=== PATIENT | male | born 1955 | race Hispanic/Latino ===

== ENCOUNTER 2019-03-08 07:30 | Observation (INO) | payer OTHER ==
[2019-03-07 13:07] VITALS: BP 114/76
[2019-03-07 14:12] LABS: POTASSIUM 3.9 mmol/L (3.5-5.1)
[2019-03-08] VITALS (24 sets, daily range): BP systolic 118–158; BP diastolic 47–93
[~2019-03-08] VITALS: Ht 177.8 cm; Wt 121.5 kg
[2019-03-08] MEDS: CLINDAMYCIN 900 MG/D5% WATER 50 ML IV SCH ×2 (06:00→13:00)
[~2019-03-08 07:30] MED LIST: ASPI-555 PO; CEFAZOLIN 3GM /D5W 100ML 100 ML IV SCH; CETI10TA57 PO; EMPA25TA PO; ENAL20TA PO; GABA-531 PO; HYDR25TA PO; IBUP-2077 PO; METF-445 PO; NITR0.4T50 SL; PHARMACY COMMUNICATION MISC SCH; PRAV80TA21 PO; SENN8.6T52 PO; SUMA100T16 PO; TOPI50TA24 PO
[2019-03-08] MEDS ORDERED: SODIUM CHLORIDE 0.9% 1000ML 1,000 ML IV ONE (11:27)
[2019-03-08] MEDS ORDERED: ROPIVACAINE 0.5% 5MG/ML 30ML IJ ONE ×2 (12:33→12:37)
[2019-03-08] MEDS ORDERED: LIDOCAINE PF 2% 5ML ABBOJECT ONE ×2 (12:33→12:42)
[2019-03-08] MEDS ORDERED: PROPOFOL 10 MG/ML 20ML VIAL IV ONE (12:33)
[2019-03-08] MEDS ORDERED: MIDAZOLAM HCL 1 MG/ML 2ML VIAL ONE (12:33)
[2019-03-08] MEDS ORDERED: FENTANYL CITRATE PF 50 MCG/1 ML 2ML VIAL ONE (12:34)
[2019-03-08] MEDS ORDERED: ROCURONIUM 10MG/1ML SYR 10 MG/ML ML ONE (12:34)
[2019-03-08] MEDS ORDERED: PHENYLEPHRINE HCL 10 MG/ML 1ML VIAL IV ONE (14:00)
[2019-03-08] MEDS ORDERED: GLYCOPYRROLATE 1 MG/5 ML SYRINGE ONE (14:08)
[2019-03-08] MEDS ORDERED: NEOSTIGMINE 5MG/5ML SYR IV ONE (14:08)
[2019-03-08] MEDS ORDERED: ONDANSETRON HCL 4 MG/2 ML VIAL ONE (14:31)
[2019-03-08 14:58] LABS: HEMATOCRIT 41.3 % (42-54)
[2019-03-08] MEDS ORDERED: MAGNESIUM HYDROXIDE 30 ML/UDCUP PO PRN (17:45)
[2019-03-08] MEDS ORDERED: BISACODYL 10 MG SUPP.RECT RC PRN (17:45)
[2019-03-08] MEDS ORDERED: DICL100G31 TP (17:51)
[2019-03-08] MEDS ORDERED: FLUT16H NS (17:51)
[2019-03-08] MEDS ORDERED: SUMATRIPTAN SUCCINATE 25 MG TABLET PO PRN (18:00)
[2019-03-08] MEDS ORDERED: ACETAMINOPHEN-CODEINE 300/30MG TAB PO PRN (18:00)
[2019-03-08] MEDS ORDERED: CETIRIZINE HCL 5 MG TABLET PO PRN (18:00)
[2019-03-08] MEDS ORDERED: HYDROCODONE/ACETAMINOPHEN 5/325 MG TAB PO PRN (18:00)
[2019-03-08] MEDS ORDERED: IBUPROFEN 800 MG TAB PO PRN (18:00)
[2019-03-08 18:15] LABS: HEMATOCRIT 40.6 % (42-54)
[2019-03-08] MEDS: GABAPENTIN 300 MG CAPSULE PO SCH (19:48)
[2019-03-08] MEDS: METFORMIN HCL 850 MG TABLET PO SCH (19:48)
[2019-03-08] MEDS ORDERED: MORPHINE SULFATE 2 MG/ML 1ML SYG IM PRN (20:00)
[2019-03-08] MEDS ORDERED: ONDANSETRON HCL 4 MG/2 ML VIAL IVP PRN (20:30)
[2019-03-08] MEDS ORDERED: FAMOTIDINE/PF 20 MG/2 ML VIAL IV SCH (20:30)
[2019-03-08] MEDS ORDERED: HYDRALAZINE HCL 20 MG/ML VIAL IM PRN (20:30)
[2019-03-08] MEDS ORDERED: DOCUSATE SODIUM 100 MG CAP PO SCH (20:30)
[2019-03-08] MEDS ORDERED: SENNOSIDES 8.6 MG TABLET PO SCH (21:00)
[2019-03-08] MEDS ORDERED: ATORVASTATIN CALCIUM 10 MG TABLET PO SCH (21:00)
--- NOTE | 2019-03-08 21:20 | NUR ---
NOTE PATIENT REPORTING HEADACHE AND BACK DISCOMFORT. HELPED HIM UP TO SIT ON SIDE OF BED AND HE SAYS HE FELT BETTER. GOT A RECLINER CHAIR AND HELPED HIM TO SIT THERE. HE SAYS HE FEELS MORE COMFORTABLE AND HE WANT TO STAY SITTING UP FOR A WHILE. GOT HIS MEDICATIONS AND MORPHINE FOR PAIN. SPOUSE AT BEDSIDE.
[2019-03-08] MEDS: TOPIRAMATE 100 MG TAB PO SCH (21:35)
[2019-03-08] MEDS: MORPHINE SULFATE 4 MG/1ML SYG IV PRN (21:45)
[2019-03-09] MEDS: GABAPENTIN 300 MG CAPSULE PO SCH ×3 (00:01→13:10)
[2019-03-09] MEDS: CLINDAMYCIN 900 MG/D5% WATER 50 ML IV SCH ×3 (00:02→13:10)
[2019-03-09 00:34] LABS: HEMATOCRIT 40.6 % (42-54)
[2019-03-09] MEDS: MORPHINE SULFATE 4 MG/1ML SYG IV PRN ×2 (01:50→05:44)
[2019-03-09 03:20] VITALS: BP 139/98
[2019-03-09 04:11] LABS: BASOPHILS % (AUTO) 0.3 % (0.0-5.0); EOSINOPHILS % (AUTO) 1.1 % (0.0-8.0); HEMATOCRIT 40.8 % (42-54); LYMPHOCYTES % (AUTO) 21.6 % (21.0-51.0); MEAN CORPUSCULAR HGB CONC 33.6 g/dL (32.0-36.0); MEAN CORPUSCULAR VOLUME 89.2 fL (79-99); MONOCYTES % (AUTO) 7.8 % (3.0-13.0); NEUTROPHILS % (AUTO) 69.2 % (40.0-77.0); PLATELET COUNT (AUTO) 184 K/uL (130-400); RED BLOOD CELL COUNT(AUTO) 4.57 MIL/uL (4.50-6.20); RED CELL DISTRIBUTION WIDTH 14.5 % (11.0-15.5); WHITE BLOOD COUNT (AUTO) 9.9 K/uL (4.8-10.8)
[2019-03-09 04:19] LABS: CREATININE 0.9 mg/dL (0.5-1.5); POTASSIUM 3.7 mmol/L (3.5-5.1)
--- NOTE | 2019-03-09 06:00 | NUR ---
NOTE PATIENT CHOSE TO SLEEP ON RECLINER. KEPT HIM COMFORTABLE AND MEDICATED HIM WITH MORPHINE NEEDED FOR HEADACHE, LEFT SHOULDER AND BACK PAIN.
--- NOTE | 2019-03-09 07:55 | NUR ---
NOTE AAOX3. DNEIES PAIN OR DISCOMFORT AT THIS TIME. S/P LEFT ROTATOR CUFF SURGERY BY DR SALAS YESTERDAY. DRESSING TO LEFT SHOULDER D/I. HE IS WEARING ABDUCTOR PILLOW AND HE IS SUPPOSED TO USE IT AT ALL TIMES. NO N/V NO DISTRESS OR SOB. BBS CLEAR. NO NUMBNESS OR TINGLING TO LEFT HAND/FINGERS AND GOOD CAPILLARY REFILL LEFT FINGER TIPS AND STRONG PALPABLE LEFT ULNAR AND RADIAL PULSES. CAN WIGGLE ALL FINGERS BOTH HANDS. AT HIS SIDE.
[2019-03-09 08:00] VITALS: BP 145/89
[2019-03-09] MEDS: TOPIRAMATE 100 MG TAB PO SCH ×2 (08:44→13:09)
[2019-03-09] MEDS: METFORMIN HCL 850 MG TABLET PO SCH ×2 (08:45→13:09)
[2019-03-09] MEDS ORDERED: **HM**Empagliflozin (Jardiance) 12.5 MG PO SCH (09:00)
[2019-03-09] MEDS ORDERED: PANTOPRAZOLE SODIUM 40 MG TABLET.DR PO SCH (09:00)
[2019-03-09] MEDS ORDERED: ENALAPRIL MALEATE 10 MG TABLET PO SCH (09:00)
[2019-03-09] MEDS ORDERED: HYDROCHLOROTHIAZIDE 25 MG TABLET PO SCH (09:00)
[2019-03-09] MEDS ORDERED: ASPIRIN 81 MG EC TAB PO SCH (09:00)
[2019-03-09 11:00] VITALS: BP 144/97
--- NOTE | 2019-03-09 11:03 | NUR ---
NOTE DR SALAS CAME AND MADE ROUNDS AND HE WILL DISCHARGE PATIENT TO FOLLOW UP WITH HIM TUESDAY AT HIS OFFICE. PATIENT IS STABLE, NO DISTRESS OR SOB. DRESSING TO LEFT SHOULDER WILL BE CHANGED PRIOR TO DC.
--- NOTE | 2019-03-09 17:00 | NUR ---
DISCHARGE INSTRUCTIONS GIVEN AT THIS TIME. VERBALIZED UNDERSTANDING. REFER TO DC SUMMARY FOR DETAILS. HE ALSO RECEIVED AND COPY OF DR SALAS'S DC ORDERS PER HIS ORDERS. DRESSING TO LEFT SHOULDER CHANGED PER DR MANSFIELD ORDERS. CLEAN INCISION WITH IODOFORM GAUZE ON IT AND PAINTED WITH BETADINE WELL AND COVERED WITH 4X4 GAUZES AND SECURED WITH TAPE. ABDUCTOR PILLOW ADJUSTED TO PROPER POSITION.
--- NOTE | 2019-03-09 18:13 | NUR ---
INITIAL PT AND SPOUES MET W [facility]IN[facility], DISCUSSED THE DC GAURAV- PT PREVIOSULY INDP, NO DME, DRIVES, HOME SAFE- S/P SHOULD SURGERY- WILL FOLOW UP W DR. SALAS IN HIS OFFIC [place] TUESDAY FOR WOUND CARE AND THERAPY, NO OTHER DC NEEDS, Addendum: 03/09/19 at 1815 by YAYA ROUSE RN CM Amended: Links added.
== END 2019-03-09 17:00 | disposition home or self-care (01) ==
LOC: EDSTATUS 07:30 → DAHIP 10:37 → 4BH 16:15
DX: E78.5 Hyperlipidemia, unspecified (principal); G43.909 Migraine, unspecified, not intractable, without status migrainosus; E11.9 Type 2 diabetes mellitus without complications; M75.102 Unspecified rotator cuff tear or rupture of left shoulder, not specified as traumatic; M75.42 Impingement syndrome of left shoulder; E78.00 Pure hypercholesterolemia, unspecified; M19.012 Primary osteoarthritis, left shoulder; E66.9 Obesity, unspecified; H91.90 Unspecified hearing loss, unspecified ear; I25.10 Atherosclerotic heart disease of native coronary artery without angina pectoris; I11.0 Hypertensive heart disease with heart failure; I50.9 Heart failure, unspecified; Z68.38 Body mass index [BMI] 38.0-38.9, adult; Z88.1 Allergy status to other antibiotic agents; Z79.899 Other long term (current) drug therapy
CPT/HCPCS: 23130; 23412; 36415 ×3; 80048 ×2; 82948 ×2; 85014 ×3; 85018 ×3; 85025; 86850; 86900; 86901; 86922; 88304 ×2; 88311; 94760; 96365; 96366; 96372; 96375; 96376; 97039; 97116; 97161; A4215; A4221; A4222; A4223; A4510; A4600; A4606; A4663; A4930; A6223; A6260; C1713; G0378 ×29; G8978; G8979; G8980; G8981; G8982; G8983; J2001 ×2; J2250; J2270 ×3; J2370; J2405; J2704; J2710; J2795 ×2; J3010; J3490 ×6; J7030 ×2; J0690

== ENCOUNTER → 2019-08-17 | Outpatient (CLI) | payer OTHER ==
[~2019-08-17] MED LIST changes: -CEFAZOLIN 3GM /D5W 100ML 100 ML IV SCH; +DICL100G31 TP; +FLUT16H NS; -PHARMACY COMMUNICATION MISC SCH
== END | disposition home or self-care (01) ==
LOC: SHCH 10:54
PROVIDERS: ATTEND Internal Medicine Cardiovascular Disease
DX: R06.00 Dyspnea, unspecified (principal)
CPT/HCPCS: 93306; 93356

== ENCOUNTER → 2019-08-21 | Outpatient (CLI) | payer OTHER ==
[~2019-08-21] MED LIST changes: +REGADENOSON 0.4 MG/5 ML PF SYG IVP SCH
== END | disposition home or self-care (01) ==
LOC: SHCH 07:39
PROVIDERS: ATTEND Internal Medicine Cardiovascular Disease
DX: R06.00 Dyspnea, unspecified (principal); I25.10 Atherosclerotic heart disease of native coronary artery without angina pectoris
CPT/HCPCS: 78452; 93017; 96374; A9500 ×2; J2785

== ENCOUNTER → 2024-02-14 | Outpatient (CLI) | payer OTHER ==
[~2024-02-14] MED LIST changes: -ASPI-555 PO; +ASPI-556 PO; -DICL100G31 TP; +DICL100G60 TP; +ENAL-91 PO; -ENAL20TA PO; -REGADENOSON 0.4 MG/5 ML PF SYG IVP SCH; +TOPI-97 PO; -TOPI50TA24 PO
[2024-02-14] MEDS: REGADENOSON 0.4 MG/5 ML PF SYG IVP ONE (16:08)
== END | disposition home or self-care (01) ==
LOC: SHCH 08:33
PROVIDERS: ATTEND Internal Medicine Cardiovascular Disease
DX: I25.10 Atherosclerotic heart disease of native coronary artery without angina pectoris (principal); I10 Essential (primary) hypertension
CPT/HCPCS: 78452; 93017; J2785; A9500 ×2